=== PATIENT | female | born 1990 | race Caucasian/White ===

== ENCOUNTER 2025-02-12 15:30 | Outpatient (AMB) | payer OTHER, SELFPAY ==
--- OUTSIDE RECORDS SUMMARY | 2025-02-12 08:15 | XMS_ITS | Encounter Summary ---
Author Organization [facility] Address [address] [place] [address] Care Team Providers Care Internet Security Specialist Name Role Phone Sonya Alvarado MD Primary Care Prov ider Reason for Visit * Cardiac Stress Testing (Routine) - Authorized Specialty Diagnoses / Procedures Referred By Radha t Referred To Contact Cardiology Diagnoses SVT (supraventricular tachycardia) (CMS/HCC V24) POTS (postural orthostatic tachycardia syndrome) Dizziness Procedures Exercise stress test Ervin Guerra NP [address] [place] [phone] Phone: tel: fax: [facility] Referral ID Status Reason Start Date Expiration Date V isits Requested Visits Authorized [id number] Authorized 01/23/2025 01/23/2026 1 1 Encounter Details Date Type Department Care Team (Latest Contact Info) Description 02/12/2025 8:15 AM EDT Ancillary Procedure [facility] - [address] [phone] SVT (supraventricular tachycardia) (CMS/HCC V24); POTS (postural orthostatic tachycardia syndrome); Dizziness Social History Tobacco Use Types Packs/Day Years Used Date Smoking Tobacco: Every Day Cigarettes 0.5 20 Started: 01/28/2005 Smokeless Tobacco: Never Alcohol Use Standard Drinks/Week Comments Not Currently 0 (1 standard drink = 0.6 oz pur e alcohol) occas/rarely Housing Instability Answer Date Recorde d Are you worried that in the next 2 months you may not have stable housing? No 07/19/2024 Food Access & Nutrition Answer Date Rec orded Do you have access to a vari ety of food including fruits and vegetables? Yes 07/19/2024 Access to Healthcare Answer Date Record ed Within the last 3 months, ho w many times did you visit the emergency department for your medical care? 0 07/19/2024 Health Literacy Answer Date Recorded How often do you need to hav e someone help you when you read instructions, pamphlets, or other written material from your doctor or pharmacy? Never 07/19/2024 Caregiver: How often do you need to have someone help you when you read instructions, pamphlets, or other written material from your doctor or pharmacy? Not on file 07/19/2024 Financial Risk Answer Date Recorded How hard is it for you to pa y for the very basics like food, housing, medical care, and air conditioning / heating? Not very hard 07/19/2024 Transportation Answer Date Recorded Has the lack of transportati on kept you from meetings, work, or from getting things needed for daily living? No Has the lack of transportati on kept you from medical appointments or from getting medications? No 07/19/2024 Social Isolation Answer Date Recorded How often do you feel lonely or isolated from th ose around you? Never 07/19/2024 Food Risk Answer Date Recorded Within the past 12 months we worried whether our food would run out before we got money to buy more. Never true 07/19/2024 Within the past 12 months th e food we bought just didn't last and we didn't have money to get more. Never true 07/19/2024 Dependent Care Answer Date Recorded Do you need help finding or paying for care for your loved ones. For example, children's author or elderly care for an older adult? No 07/19/2024 Education Answer Date Recorded Do you think completing more education or training, like finishing a GED, going to college, or learning a trade, would be helpful for you? No 07/19/2024 Employment and Income Answer Date Recor ded During the last four weeks, have you been actively looking for work? No 07/19/2024 Living Situation Answer Date Recorded What is your living situation? Unrecognized valu e 07/19/2024 Comments No Sex and Gender Information Value Date Recorded Sex Assigned at Not on file Legal Sex Female 6:34 AM EST Gender Identity Not on file Sexual Orientation Not on file documented as of this encounter Last Filed Vital Signs Vital Sign Reading Time Taken Comments Blood Pressure 110/82 02/12/2025 8:05 AM EDT Pulse - - Temperature - - Respiratory Rate - - Oxygen Saturation - - Inhaled Oxygen Concentration - - Weight 56.2 kg (124 lb) 02/12/2025 8:05 AM EDT Height - - Body Mass Index 21.28 02/05/2025 8:05 AM EDT documented in this encounter Functional Status * Are you deaf or do you have serious difficulty hearing? Answer Date of Assessment Author No 09/23/2024 6:34 AM Tisha Shirley RN * Are you blind or do you have serious difficulty seeing, even when wearing glasses? Answer Date of Assessment Author No 09/23/2024 6:34 AM Tisha Shirley RN * Do you have serious difficulty walking or climbing stairs? Answer Date of Assessment Author No 09/23/2024 6:34 AM Tisha Shirley RN * Do you have serious difficulty dressing or bathing? Answer Date of Assessment Author No 09/23/2024 6:34 AM Tisha Shirley RN * Because of a physical, mental, or emotional condition, do you have serious difficulty doing errandsalone such as visiting the doctor? Answer Date of Assessment Author No 09/23/2024 6:34 AM Tisha Shirley RN documented as of this encounter Mental Status * Because of a physical, mental, or emotional condition, do you have serious difficulty concentrating, remembering, or making decisions? (5 years old or older) Answer Entry Date Author No 09/23/2024 6:34 AM Tisha Shirley RN documented in this encounter Plan of Treatment Upcoming Encounters Date Type Department Care Team (Late st Contact Info) Description 04/15/2025 1:45 PM EST Appointment [facility] [address] [place] [address] 04/16/2025 9:50 AM EST Office Visit Gastroenterology - [place] [address] [facility] [address] [facility] [address] [place] [phone] Carline Dickerson PA [address] [place] [address] 05/28/2025 10:10 AM EST Office Visit [facility] - [facility] [address] [facility] [address] [place] [phone] Ervin Guerra NP [address] [place] [address] [address] [place] [address] 07/09/2025 10:30 AM EST Office Visit Adult [address] [phone] Kymberly Morgan PA [address] [place] [address] 01/06/2026 2:00 PM EDT Office Visit [address] [phone] Sonya Alvarado MD [address] [place] [address] Pending Results Name Type Priority Associated Diagnoses Date /Time Exercise stress test Cardiac Nuclear Medicine Routine SVT (supraventricular tachycardia) (CMS/HCC V24) POTS (postural orthostatic tachycardia syndrome) Dizziness 02/12/2025 8:28 AM EDT documented as of this encounter Procedures Procedure Name Priority Date/Time Associated Diagnosis Comments STRESS TEST ONLY EXERCISE Routine 02/12/2025 8:28 AM EDT SVT (supraventricular tachycardia) (CMS/HCC V24) POTS (postural orthostatic tachycardia syndrome) Dizziness Procedure Note - Joaquina Jewell NP / Cameron Appiah MD - 02/12/2025 8:28 AM EDTThis note is in progress. Stress ECG was normal. Exercise stress test was performed. Patient reported no symptoms duringthe stress test. Exercise capacity was average. Normal blood pressureresponse. Stress: The test was stopped because the patient experienced fatigue.Blood pressure demonstrated a normal response. Heart rate demonstrated anormal response. The patient reported no symptoms during the stresstest. Findings Stress Findings A Real protocol stress test was performed. Overall, the patient's exercise capacity was average. Total stress time was 9 min and 29 sec. The patient experienced no angina during the test. The test was stopped because the patient experienced fatigue. The Segura Treadmill Score is 9. The patient's hemodynamic response was adequate for diagnosis. Blood pressure demonstrated a normal response. Heart rate demonstrated a normal response. The patient reported no symptoms during the stress test. ECG 34 yo female with a history of SVT, POTS and former tobacco use referred for POTS. The ECG shows normal sinus rhythm. Baseline ECG indicates incomplete right bundle branch block. There were no arrhythmias during stress. There is no ST segment changes during stress. There were no arrhythmias during recovery. The result of the stress ECG was negative for ischemia. documented in this encounter Visit Diagnoses Diagnosis SVT (supraventricular tachycardia) (CMS/HCC V24) Other specified cardiac dysrhythmias POTS (postural orthostatic tachycardia syndrome) Unspecified tachycardia Dizziness Dizziness and giddiness documented in this encounter Additional Health Concerns Assessment Noted Time PHQ-9 Depression Total Score: 0 07/20/19 25 8:54 AM EST documented as of this encounter Care Teams Internet Security Specialist Relationship Specialty Start Date End Date Sonya Alvarado MD [address] [place] [phone] PCP - General Internal Medicine 03/06/24 documented as of this encounter
--- NOTE | 2025-02-12 15:43 | A.OFFVIS_ITS ---
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 Now she was here saying that her [employer] [facility] here because of POTS syndrome. Her main concern was dizziness that was described as lightheadedness but sometime spinning sensation occurring frequently many times making her unsteady and dizzy. She could not figure out any particular trigger but stated that it was frequently present. She also talked about an odd feeling in left occipital area like water was running. She did not have severe headaches recently but she was having some headache every day. She also talked about tingling and numbness in her legs. One time she had left hemibody numbness and went to emergency room and had scanning done for stroke that was negative. In September of 2019 five she had an MRI done and [facility] that did not reveal any significant pathology. She denied any bowel bladder difficulties. [facility] Medical History (Updated 02/12/25 @ 16:08 by Juliana Rodriguez MD) SVT (supraventricular tachycardia) PTSD (post-traumatic stress disorder) POTS (postural orthostatic tachycardia syndrome) Dysmenorrhea Depression Allergic rhinitis Paresthesias Review of Systems Const Details: - Neurological: Reports dizziness, fainting history, lightheadedness, head pressure, numbness, and tingling in legs. - Musculoskeletal: Reports weakness, numbness, tingling, and cramp-like pain in legs. - HEENT: Reports pressure sensation in the head, non-spinning vertigo. - Cardiovascular: Reports diagnosed Postural Orthostatic Tachycardia Syndrome. - Psychiatric: Reports variability in mood and history of anxiety. Physical Exam Neuro Other: Mental Status: Alert and oriented to person, place, and time. Normal attention. Normal spontaneous speech, fluency, and comprehension. No obvious issues with mood and memory. Affect is appropriate. Cranial Nerves: CN II: Visual patton full to confrontation, visual acuity intact. CN III, IV, : Pupils equal, round, reactive to light and accommodation. Extraocular movements are normal. CN V: Facial sensation is normal. CN VII: Facial movements symmetrical. CN VIII: Hearing intact to bedside conversation is normal. CN IX, X: Palate elevates symmetrically. CN XI: Shoulder shrug and head turn symmetrical. CN XII: Tongue midline without atrophy or fasciculations. Motor: Deep tendon reflexes were absent with flexor plantars. Joint position and vibratory sensations were diminished or absent in toes. Extrapyramidal: Full facial expressions and blinking. No rigidity. Movements are appropriate with no tremor or abnormality. Speech: Normal; no dysarthria or tremor. Results Reviewed Results Reviewed: Her antinuclear antibody screen at [facility] was negative. Rheumatoid factor was less than 10. Basic metabolic profile was normal. Glucose was 91. B12 was 341. Folate was 5.2. Vitamin-D was 21.8. Antibody Babesiosis antibody titer was negative. Lyme test was negative. Hemoglobin A1c was 5.9. Ferritin was 18. Magnesium was 2.2. Tissue transfer gluteus in his was normal. Assessment & Plan Assessment & Plan (1) Migraine: Comment: MRI brain [facility] at [facility] in September 2024: WNL Code(s): G43.909 - Migraine, unspecified, not intractable, without status migrainosus Category: Medical Qualifiers: Migraine type: migraine (< 15 days per month) without aura Status migrainosus presence: without status migrainosus Intractability: not intractab le Qualified Code(s): G43.009 - Migraine without aura, not intractable, without status migrainosus (2) Peripheral neuropathy: Code(s): G62.9 - Polyneuropathy, unspecified Category: Medical Qualifiers: Peripheral neuropathy type: polyneuropathy, unspecified Qualified Code(s): G62.9 - Polyneuropathy, unspecified (3) Migraine equivalent syndrome: Code(s): G43.109 - Migraine with aura, not intractable, without status migrainosus Category: Medical Plan Impression: 1. Probably chronic migraine including brainstem migraine and associated symptomatology explaining stroke-like symptoms, paresthesias, and dizziness 2. Recent worsening of legs symptoms with tingling and numbness and exam revealing lack of reflexes suggestive of peripheral neuropathy. Recommendations: 1. EMG nerve conduction study of lower extremities 2. Reassurance and education about her conditions 3. Topiramate 25 mg 1 at night Orders: Orders NE nerve conduction velocity Today G62.9 - Polyneuropathy, unspecified NE electromyogram (EMG) Today G62.9 - Polyneuropathy, unspecified Medications: New topiramate 25 mg orally one at night; 90 tabs 1RF Coding Level of Care Code New Pt Level 5 (53306) Diagnoses Migraine without aura and without status migrainosus, not intractable G43.009 Migraine type: migraine (< 15 days per month) without aura Status migrainosus presence: without status migrainosus Intractability: not intractable Peripheral polyneuropathy G62.9 Peripheral neuropathy type: polyneuropathy, unspecified Migraine equivalent syndrome G43.109
[2025-02-12 16:03] VITALS: BP 109/71; PULSE 70
--- OUTSIDE RECORDS SUMMARY | 2025-02-12 16:21 | XMS_ITS | Clinical Summary ---
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 leaflets are not thickened and exhibit normal excursion. There is no regurgitation or stenosis. Pulmonic Valve The pulmonic valve was not well visualized. No significant pulmonic valve regurgitation. No significant pulmonary valve stenosis noted. Ascending Aorta The aorta appears normal in size. Pericardium Pericardium appears normal. There is no pericardial effusion. Study Details Overall the study quality was adequate. The underlying ECG rhythm was bundle branch block. us Ervin Guerra NP CV ECHO PROCEDURES Final Re sult * CARDIAC HOLTER MONITOR (REPORT GENERATED IN HOUSE) (01/23/2025 3:41 PM EDT) Anatomical Region Laterality Modality Cardiac Diagnost ic Narrative 02/03/2025 6:46 AM EDT [facility] DIAGNOSTIC TESTING DEPARTMENT [address] [place] [address], [place] [address] TEL: FAX: Type of Test: 24 Hour Holter Monitor Date of Test: 01/23/2025 Ordering Provider: Ervin Guerra NP Reason for Test: POTS (postural orthostatic tachycardia syndrome) Impression: (Total recorded time: 20 hours 11 minutes) 1: Normal Sinus Rhythm with episodes of Second Degree AVB Type I. 2: One PAC. Two PVCs. 3: No significant pause noted, longest R-R was 1.9 seconds at 12:22 AM. 4: Diary returned with no symptoms noted. Ervin Guerra NP CV CARDIAC SERVICES PROCEDU RES Final Result * ECG-Annotated (01/20/2025) Provider Onbase ECG ORDERABLES Final Result * Tissue transglutaminase, IgG (01/18/2025 2:16 PM EDT) t-Transglutamin ase (tTG) IgG <2 0 - 5 U/mL 01/21/2025 1:05 PM EDT [facility] Comment: Negative 0 - 5 Weak Positive 6 - 9 Positive >9 Blood Venous blood specimen / Unknown Venipuncture / Unknown 01/18/2025 2:16 PM EDT 01/18/2025 3:11 PM EDT Narrative [facility] - 01/21/2025 1:05 PM EDT Performed at: [facility] [id number] Archivist Economic History: Chandni Tiwari MD, Phone: [phone] Raj Holguin MD LAB BLOOD ORDERABLES Final Result [facility] * XR Chest 2 Views (01/18/2025 11:40 AM EDT) Anatomical Region Laterality Modality Body Radiographic Christina ging 01/18/2025 11:4 8 AM EDT Impressions 01/18/2025 11:56 AM EDT Normal chest radiographs. -------- FINAL REPORT -------- Dictated By: Yordan Crenshaw Dictated Date: 01/18/2025 11:48 ET Assigned Physician: Yordan Crenshaw Reviewed and Electronically Signed By: Yordan Crenshaw Signed Date: 01/18/2025 11:56 ET Workstation ID: [id number] Transcribed By: Self Edit Transcribed Date: 01/18/2025 11:48 ET Narrative 01/18/2025 11:56 AM EDT PROCEDURE: PA and lateral radiographs of the chest. HISTORY: chest pain. COMPARISON: 09/04/2015. FINDINGS: The heart, mediastinum, lungs, pleural spaces, and bony thorax are normal. Procedure Note Yordan Crenshaw MD - 01/18/2025 PROCEDURE: PA and lateral radiographs of the chest. HISTORY: chest pain. COMPARISON: 09/04/2015. FINDINGS: The heart, mediastinum, lungs, pleural spaces, and bony thorax arenormal. IMPRESSION: Normal chest radiographs. -------- FINAL REPORT -------- Dictated By: Yordan Crenshaw Dictated Date: 01/18/2025 11:48 ET Assigned Physician: Yordan Crenshaw Reviewed and Electronically Signed By: Yordan Crenshaw Signed Date: 01/18/2025 11:56 ET Workstation ID: [id number] Transcribed By: Self Edit Transcribed Date: 01/18/2025 11:48 ET Raj Holguin MD IMG XR PROCEDURES Final Res ult * POC , urine manually resulted (01/18/2025 11:24 AM EDT) HCG, Ur POC Negative Negative POC hCG Int QC Pass? Yes Yes Urine Urine specimen obtained by clean catch procedure / Unknown 01/18/2025 11:24 AM EDT Raj Holguin MD POINT OF CARE TEST ENTER/ED IT ORDERABLES Final Result * Troponin I high sensitivity (01/18/2025 10:38 AM EDT) Only the most recent of2 resultswithin the time period is included. High Sensitivity Troponin I 3 <=54 ng/L LAB CHEMISTRY METHOD 01/18/2025 11:28 AM EDT [facility] Blood Venous blood specimen / Unknown Venipuncture / Unknown 01/18/2025 10:38 AM EDT 01/18/2025 10:54 AM EDT Narrative [facility] - 01/18/2025 11:28 AM EDT High levels of biotin in samples may falsely decrease hsTroponin values. Use caution when interpreting hsTroponin results in patients taking biotin who exhibit renal impairment (eGFR <60) or in patients taking more than 20 mg/day of biotin. Raj Holguin MD LAB BLOOD ORDERABLES Final Result Performing Organization Address [facility]/ZIP Co de Phone Number [facility] [address] [place] [address], [place] [phone] * Endomysial antibody, IgA (01/18/2025 10:10 AM EDT) Endomysial IgA Negative Negative 01/22/2025 11:29 AM EDT [facility] Blood Venous blood specimen / Unknown Venipuncture / Unknown 01/18/2025 10:10 AM EDT 01/18/2025 10:22 AM EDT Raj Holguin MD LAB BLOOD ORDERABLES Final Result Performing Organization Address [facility]/ZIP Co de Phone Number [facility] [address] [place] [address], [place] [phone] * ALEXIS IFA with titer and pattern (01/18/2025 10:10 AM EDT) ALEXIS Negative Negative 01/21/2025 1:40 PM EDT [facility] Comment:ALEXIS performed by ind irect immunofluorescence (IFA) using HEp-2 substrate. Blood Venous blood specimen / Unknown Venipuncture / Unknown 01/18/2025 10:10 AM EDT 01/18/2025 10:22 AM EDT Raj Holguin MD LAB BLOOD ORDERABLES Final Result Performing Organization Address City/[facility]/ZIP Co de Phone Number [facility] [address] [place] [address], [place] [phone] * CBC auto differential (01/18/2025 10:10 AM EDT) Only the most recent of2 resultswithin the time period is included. [facility] Signature WBC 7.9 4.8 - 10.8 K/mcL LAB HEMETOLOGY METHOD 01/18/2025 10:28 AM [facility] RBC 4.70 3.80 - 4.80 M/mcL LAB HEMETOLOGY METHOD 01/18/2025 10:28 AM [facility] Hemoglobin 14.0 11.5 - 16.0 g/dL LAB HEMETOLOGY METHOD 01/18/2025 10:28 AM [facility] Hematocrit 42.2 35.0 - 47.0 % LAB HEMETOLOGY METHOD 01/18/2025 10:28 AM [facility] MCV 90.6 79.0 - 98.0 FL LAB HEMETOLOGY METHOD 01/18/2025 10:28 AM [facility] MCH 30.0 27.0 - 32.0 pcg LAB HEMETOLOGY METHOD 01/18/2025 10:28 AM [facility] MCHC 33.2 32.0 - 37.0 g/dL LAB HEMETOLOGY METHOD 01/18/2025 10:28 AM [facility] RDW 13.0 11.0 - 15.0 % LAB HEMETOLOGY METHOD 01/18/2025 10:28 AM [facility] Platelets 352 130 - 400 K/mcL LAB HEMETOLOGY METHOD 01/18/2025 10:28 AM [facility] MPV 9.7 7.0 - 11.0 FL LAB HEMETOLOGY METHOD 01/18/2025 10:28 AM [facility] NRBC 0.0 <1.0 % LAB HEMETOLOGY METHOD 01/18/2025 10:28 AM [facility] NRBC Absolute 0.00 <0.10 K/mcL LAB HEMETOLOGY METHOD 01/18/2025 10:28 AM [facility] Neutrophils Relative 48.6 % LAB HEMETOLOGY METHOD 01/18/2025 10:28 AM [facility] Lymphocytes Relative 40.8 % LAB HEMETOLOGY METHOD 01/18/2025 10:28 AM [facility] Monocytes Relative 7.8 % LAB HEMETOLOGY METHOD 01/18/2025 10:28 AM [facility] Eosinophils Relative 1.8 % LAB HEMETOLOGY METHOD 01/18/2025 10:28 AM [facility] Basophils Relative 0.6 % LAB HEMETOLOGY METHOD 01/18/2025 10:28 AM [facility] Immature Granulocytes Relative 0.4 % LAB HEMETOLOGY METHOD 01/18/2025 10:28 AM [facility] Neutrophils Absolute 3.82 1.50 - 7.00 K/mcL LAB HEMETOLOGY METHOD 01/18/2025 10:28 AM [facility] Lymphocytes Absolute 3.21 1.00 - 5.00 K/mcL LAB HEMETOLOGY METHOD 01/18/2025 10:28 AM [facility] Monocytes Absolute 0.61 0.20 - 1.00 K/mcL LAB HEMETOLOGY METHOD 01/18/2025 10:28 AM [facility] Eosinophils Absolute 0.14 0.00 - 0.50 K/mcL LAB HEMETOLOGY METHOD 01/18/2025 10:28 AM [facility] Basophils Absolute 0.05 0.00 - 0.20 K/mcL LAB HEMETOLOGY METHOD 01/18/2025 10:28 AM [facility] Immature Granulocytes Absolute 0.03 0.00 - 0.03 K/mcL LAB HEMETOLOGY METHOD 01/18/2025 10:28 AM EDT [facility] Blood Venous blood specimen / Unknown Venipuncture / Unknown 01/18/2025 10:10 AM EDT 01/18/2025 10:22 AM EDT Raj Holguin MD LAB BLOOD ORDERABLES Final Result Performing Organization Address City/[facility]/ZIP Co de Phone Number [facility] [address] [place] [address], [place] [phone] * (ABNORMAL) Gliadin antibodies, serum (01/18/2025 10:10 AM EDT) Gliadin IgA 28(H) <20 units LAB CHEMISTRY METHOD 01/22/2025 11:54 AM EDT [facility] Gliadin IgG 1 <20 units LAB CHEMISTRY METHOD 01/22/2025 11:54 AM EDT [facility] Gliadin IgA Antibody Positive(A) Negative LAB CHEMISTRY METHOD 01/22/2025 11:54 AM EDT [facility] Gliadin IgG Antibody Negative Negative LAB CHEMISTRY METHOD 01/22/2025 11:54 AM EDT [facility] Blood Venous blood specimen / Unknown Venipuncture / Unknown 01/18/2025 10:10 AM EDT 01/18/2025 10:22 AM EDT Raj Holguin MD LAB BLOOD ORDERABLES Final Result [facility] [address] [place] [address], [place] [phone] * Tissue transglutaminase, IgA (01/18/2025 10:10 AM EDT) Tissue Transglutaminase Ab, IgA Quant 0 <4 unit/mL LAB CHEMISTRY METHOD 01/22/2025 11:54 AM EDT [facility] Tissue Transglutaminase Ab, IgA Negative Negative LAB CHEMISTRY METHOD 01/22/2025 11:54 AM EDT [facility] Blood Venous blood specimen / Unknown Venipuncture / Unknown 01/18/2025 10:10 AM EDT 01/18/2025 10:22 AM EDT Raj Holguin MD LAB BLOOD ORDERABLES Final Result Performing Organization Address City/[facility]/ZIP Co de Phone Number [facility] [address] [place] [address], [place] [phone] * Rheumatoid factor (01/18/2025 10:10 AM EDT) Pathologist [facility] Rheumatoid Factor <10.0 <15.0 I Unit/mL LAB CHEMISTRY METHOD 01/18/2025 2:07 PM EDT [facility] Blood Venous blood specimen / Unknown Venipuncture / Unknown 01/18/2025 10:10 AM EDT 01/18/2025 10:22 AM EDT Raj Holguin MD LAB BLOOD ORDERABLES Final Result Performing Organization Address [facility]/ZIP Co de Phone Number [facility] [address] [place] [address], [place] [phone] * C-reactive protein (01/18/2025 10:10 AM EDT) Pathologist [facility] C-Reactive Protein <0.29 <=0.50 mg/dL LAB CHEMISTRY METHOD 01/18/2025 2:07 PM EDT [facility] Blood Venous blood specimen / Unknown Venipuncture / Unknown 01/18/2025 10:10 AM EDT 01/18/2025 10:22 AM EDT Raj Holguin MD LAB BLOOD ORDERABLES Final Result [facility] [address] [place] [address], [place] [phone] * Magnesium (01/18/2025 10:10 AM EDT) [facility] Magnesium 2.2 1.9 - 2.6 mg/dL LAB CHEMISTRY METHOD 01/18/2025 11:07 AM T [facility] Blood Venous blood specimen / Unknown Venipuncture / Unknown 01/18/2025 10:10 AM EDT 01/18/2025 10:22 AM EDT us Raj Holguin MD LAB BLOOD ORDERABLES Final Result [facility] [address] [place] [address], [place] [phone] * (ABNORMAL) Basic metabolic panel (01/18/2025 10:10 AM EDT) [facility] Sodium 137 133 - 145 mmol/L LAB CHEMISTRY METHOD 01/18/2025 11:16 AM [facility] Potassium 4.4 3.5 - 5.5 mmol/L LAB CHEMISTRY METHOD 01/18/2025 11:16 AM [facility] Chloride 108 96 - 110 mmol/L LAB CHEMISTRY METHOD 01/18/2025 11:16 AM [facility] CO2 27 21 - 32 mmol/L LAB CHEMISTRY METHOD 01/18/2025 11:16 AM [facility] Anion Gap 2(L) 3 - 11 LAB CHEMISTRY METHOD 01/18/2025 11:16 AM [facility] Glucose 91 70 - 100 mg/dL LAB CHEMISTRY METHOD 01/18/2025 11:16 AM [facility] BUN 13 5 - 25 mg/dL LAB CHEMISTRY METHOD 01/18/2025 11:16 AM [facility] Creatinine 0.88 0.50 - 1.10 mg/dL LAB CHEMISTRY METHOD 01/18/2025 11:16 AM EDT [facility] eGFR 87 >=60 mL/min/1. 73m2 LAB CHEMISTRY METHOD 01/18/2025 11:16 AM EDT [facility] Comment:Calculation based on the Chronic Kidney Disease Epidemiology Collaboration (CKD-EPI) equation refit without adjustment for race. BUN/Creatinine Ratio 14.8 LAB CHEMISTRY METHOD 01/18/2025 11:16 AM EDT [facility] Calcium 9.2 8.5 - 10.5 mg/dL LAB CHEMISTRY METHOD 01/18/2025 11:16 AM EDT [facility] Blood Venous blood specimen / Unknown Venipuncture / Unknown 01/18/2025 10:10 AM EDT 01/18/2025 10:22 AM EDT Raj Holguin MD LAB BLOOD ORDERABLES Final Result [facility] [address] [place] [address], [place] [phone] * ECG 12 lead (01/18/2025 10:06 AM EDT) Only the most recent of2 resultswithin the time period is included. Ventricular Rate ECG 81 BPM GEMUSE Atrial Rate 81 BPM GEMUSE P-R Interval 146 ms GEMUSE QRS Duration 98 ms GEMUSE Q-T Interval 354 ms GEMUSE QTc 411 ms GEMUSE P Wave [place] 64 degrees GEMUSE R [place] -20 degrees GEMUSE T [place] 59 degrees GEMUSE ECG Interpretation Normal sinus rhythm Incomplete right bundle branch block Minimal voltage criteria for LVH, may be normal variant ( Donell product ) Borderline ECG When compared with ECG of 07-JAN-2025 15:22, Minimal criteria for Inferior infarct are no longer Present QT has shortened Confirmed by PRITESH GRACE ([id number]) on 01/19/2025 7:14:55 AM GEMUSE 01/18/2025 10:0 6 AM EDT 01/19/2025 7:14 AM EDT us Raj Holguin MD ECG ORDERABLES Final Resul t Performing Organization Address City/[facility]/ZIP Co de Phone Number [facility] * Microalbumin creatinine urine ratio (12/04/2024 11:00 AM EDT) Creatinine, Urine 189.0 mg/dL LAB CHEMISTRY METHOD 12/04/2024 7:24 PM EDT [facility] Microalb, Ur 10.5 0.0 - 29.0 mg/L LAB CHEMISTRY METHOD 12/04/2024 7:24 PM EDT [facility] Microalb/Creat Ratio 6 <30 mg/g creat LAB CHEMISTRY METHOD 12/04/2024 7:24 PM EDT [facility] Urine Urine specimen obtained by clean catch procedure / Unknown Non-blood Collection / Unknown 12/04/2024 11:00 AM EDT 12/04/2024 11:00 AM EDT [facility] URINE ORDERABLES Final Resu lt Performing Organization Address [facility] Co de Phone Number [facility] [address] [place] [address], [place] [phone] * Culture urine (12/04/2024 10:57 AM EDT) Culture, Urine <10,000 CFU/mL gram positive cocci, insignificant count, no further workup 12/05/2024 1:18 PM EDT [facility] Urine Urine specimen obtained by clean catch procedure / Unknown Non-blood Collection / Unknown 12/04/2024 10:57 AM EDT 12/04/2024 10:57 AM EDT [facility] MICROBIOLOGY - GENERAL ORDE RABLES Final Result Performing Organization Address City/[facility]/ZIP Co de Phone Number [facility] [address] [place] [address], [place] [phone] * Thyroid stimulating hormone with reflex to free t4 and free t3 (12/04/2024 10:19 AM EDT) [facility] TSH 1.11 0.40 - 4.00 mcIU/mL LAB CHEMISTRY METHOD 12/04/2024 2:20 PM EDT [facility] Blood Venous blood specimen / Unknown Venipuncture / Unknown 12/04/2024 10:19 AM EDT 12/04/2024 10:19 AM EDT [facility] BLOOD ORDERABLES Final Resu lt [facility] [address] [place] [address], [place] [phone] * Lipid panel with reflex to direct LDL (12/04/2024 10:19 AM EDT) [facility] Cholesterol 125 0 - 200 mg/dL LAB CHEMISTRY METHOD 12/04/2024 1:26 PM EDT [facility] Triglycerides 50 0 - 150 mg/dL LAB CHEMISTRY METHOD 12/04/2024 1:26 PM T [facility] HDL 56 >=40 mg/dL LAB CHEMISTRY METHOD 12/04/2024 1:26 PM [facility] LDL Calculated 59 0 - 100 mg/dL LAB CHEMISTRY METHOD 12/04/2024 1:26 PM EDT [facility] VLDL Cholesterol Jose 10 mg/dL LAB CHEMISTRY METHOD 12/04/2024 1:26 PM EDT [facility] Non HDL Chol. (LDL+VLDL) 69 <145 mg/dL LAB CHEMISTRY METHOD 12/04/2024 1:26 PM [facility] Chol/HDL Ratio 2.2 0.0 - 4.4 LAB CHEMISTRY METHOD 12/04/2024 1:26 PM T [facility] Blood Venous blood specimen / Unknown Venipuncture / Unknown 12/04/2024 10:19 AM EDT 12/04/2024 10:19 AM EDT [facility] BLOOD ORDERABLES Final Resu lt [facility] [address] [place] [address], * Babesia microti antibodies, IGG and IGM (12/04/2024 10:19 AM EDT) Babesia microti IgG Antibodies <1:64 12/10/2024 10:37 PM EDT [facility] Babesia microti IgM Antibodies <1:20 12/10/2024 10:37 PM EDT [facility] Babesia microti Interpretation SEE NOTE 12/10/2024 10:37 PM EDT [facility] Comment: ANTIBODY NOT DETECTED REFERENCE RANGES: IgG <1:64 IgM <1:20 Elevated antibody levels to B. microti indicate exposure to the organism. Human babesiosis infection is transmitted by the bite of an infected Ixodes tick or less frequently from transfusion with blood from an infected donor. Definitive diagnosis is made by identifying intraerythrocytic organisms in peripheral blood. In patients with low parasitemia, antibody detection by IFA is recommended. IgG levels greater than or equal to 1:1024 can be detected in acute phase patients with parasites in blood smears. The IFA assay can be used as a seroepidemiologic tool to study the frequency and distribution of B. microti in endemic areas especially in persons with mixed infections also involving Borrelia burgdorferi. This test was developed and its analytical performance characteristics have been determined by [facility]. It has not been cleared or approved by FDA. This assay has been validated pursuant to the CLIA regulations and is used for clinical purposes. Test Performed at: [facility] [id number] [place] [id number] Robert Su MD, PhD Blood Venous blood specimen / Unknown Venipuncture / Unknown 12/04/2024 10:19 AM EDT 12/04/2024 10:19 AM EDT us [facility] BLOOD ORDERABLES Final Resu [place] [address] * Anaplasma phagocytophilum antibodies, IGG and IGM (12/04/2024 10:19 AM EDT) Anaplasma phagocytophilum IgG Ab <1:64 <1:64 12/11/2024 6:37 PM EDT [facility] Anaplasma phagocytophilum IgM Ab <1:20 <1:20 12/11/2024 6:37 PM EDT [facility] Anaplasma phagocytophilum Interpretation SEE BELOW 12/11/2024 6:37 PM EDT [facility] Comment:Antibody Not Detecte d Comment SEE BELOW 12/11/2024 6:37 PM EDT [facility] Comment: Anaplasma phagocytophilum is the tick-borne agent causing Human Granulocytic Ehrlichiosis (HGE). HGE is distinct and separate from Human Monocytic Ehrlichiosis (HME), caused by Ehrlichia chaffeensis. Serologic crossreactivity between A. phagocyto- philum and E. chaffeensis is minimal (5-15%). This test was developed and its analytical performance characteristics have been determined by [facility] [place]. It has not been cleared or approved by the U.S. Food and Drug Administration. This assay has been validated pursuant to the CLIA regulations and is used for clinical purposes. Test Performed by [facility], [facility], [address] [place] [address] Noe Cancino M.D., Ph.D., Director of Laboratories , CLIA [id number] Blood Venous blood specimen / Unknown Venipuncture / Unknown 12/04/2024 10:19 AM EDT 12/04/2024 10:19 AM EDT [facility] BLOOD ORDERABLES Final Resu lt Performing Organization Address [facility]/ZIP Co de Phone Number [facility] [address] [place] [address] * Iron and TIBC (12/04/2024 10:19 AM EDT) Iron 95 40 - 150 mcg/dL LAB CHEMISTRY METHOD 12/04/2024 1:26 PM EDT [facility] TIBC 387 250 - 450 mcg/dL LAB CHEMISTRY METHOD 12/04/2024 1:26 PM EDT [facility] Iron Saturation 25 15 - 50 % LAB CHEMISTRY METHOD 12/04/2024 1:26 PM EDT [facility] Blood Venous blood specimen / Unknown Venipuncture / Unknown 12/04/2024 10:19 AM EDT 12/04/2024 10:19 AM EDT [facility] BLOOD ORDERABLES Final Resu lt Performing Organization Address [facility]/ZIP Co de Phone Number [facility] [address] [place] [address], * Ehrlichia chaffeensis antibodies, IgG and IgM (12/04/2024 10:19 AM EDT) Pathologist [facility] Ehrlichia chaffeensis Ab IgG <1:64 <1:64 12/11/2024 6:37 PM EDT [facility] Ehrlichia chaffeensis Ab IgM <1:20 <1:20 12/11/2024 6:37 PM EDT [facility] Interpretation SEE BELOW 12/11/2024 6:37 PM EDT [facility] Comment:Antibody Not Detecte d Comment SEE BELOW 12/11/2024 6:37 PM EDT [facility] Comment: Ehrlichia chaffeenis has been identified as the causative agent of Human Monocytic Ehrlichiosis (HME). Infected individuals produce specific antibodies to E. chaffeensis that can be detected by an immuno- fluorescent antibody (IFA) test. Single IgG IFA titers of 1:64 or greater indicate exposure to E. chaffeensis. A four-fold rise in IgG titers between acute and convalescent samples and/or the presence of IgM antibody against E. chaffeensis suggest recent or current infection. This test was developed and its analytical performance characteristics have been determined by [facility] [place]. It has not been cleared or approved by the U.S. Food and Drug Administration. This assay has been validated pursuant to the CLIA regulations and is used for clinical purposes. Test Performed by [facility], [facility], [address] [place] [address] Noe Cancino M.D., Ph.D., Director of Laboratories , CLIA [id number] Blood Venous blood specimen / Unknown Venipuncture / Unknown 12/04/2024 10:19 AM EDT 12/04/2024 10:19 AM EDT [facility] BLOOD ORDERABLES Final Resu lt Performing Organization Address City/[facility]/ZIP Co de Phone Number [facility] [address] [place] [address] * Borrelia burgdorferi antibody (12/04/2024 10:19 AM EDT) [facility] Lyme Ab Negative Negative LAB CHEMISTRY METHOD 12/04/2024 2:14 PM EDT [facility] Comment: No laboratory evidence of infection with B. burgdorferi (Lyme disease). Negative results may occur in patients recently infected (<=14 days) with B. burgdorferi. If recent infection is suspected, repeat testing on a new sample collected in 7- 14 days is recommended. Blood Venous blood specimen / Unknown Venipuncture / Unknown 12/04/2024 10:19 AM EDT 12/04/2024 10:19 AM EDT Kymberly BROWNING LAB BLOOD ORDERABLES Final Resu lt [facility] [address] [place] [address], [place] [phone] * (ABNORMAL) Vitamin D 25 hydroxy (12/04/2024 10:19 AM EDT) Pathologist [facility] Vit D, 25-Hydroxy 21.8(L) 30.0 - 80.0 ng/mL LAB CHEMISTRY METHOD 12/04/2024 2:19 PM EDT [facility] Blood Venous blood specimen / Unknown Venipuncture / Unknown 12/04/2024 10:19 AM EDT 12/04/2024 10:19 AM EDT Kymberly BROWNING LAB BLOOD ORDERABLES Final Resu lt [facility] [address] [place] [address], [place] [phone] * Folate (12/04/2024 10:19 AM EDT) [facility] Folate 5.2 2.8 - 17.0 ng/ml LAB CHEMISTRY METHOD 12/04/2024 1:26 PM EDT [facility] Blood Venous blood specimen / Unknown Venipuncture / Unknown 12/04/2024 10:19 AM EDT 12/04/2024 10:19 AM EDT Kymberly BROWNING LAB BLOOD ORDERABLES Final Resu lt [facility] [address] [place] [address], [place] [phone] * Ferritin (12/04/2024 10:19 AM EDT) [facility] Ferritin 18 8 - 252 ng/mL LAB CHEMISTRY METHOD 12/04/2024 1:26 PM EDT [facility] Blood Venous blood specimen / Unknown Venipuncture / Unknown 12/04/2024 10:19 AM EDT 12/04/2024 10:19 AM EDT us Kymberly BROWNING LAB BLOOD ORDERABLES Final Resu lt [facility] [address] [place] [address], [place] [phone] * Vitamin B12 (12/04/2024 10:19 AM EDT) Pathologist [facility] Vitamin B-12 341 250 - 900 pcg/mL LAB CHEMISTRY METHOD 12/04/2024 1:26 PM EDT [facility] Blood Venous blood specimen / Unknown Venipuncture / Unknown 12/04/2024 10:19 AM EDT 12/04/2024 10:19 AM EDT Kymberly BROWNING LAB BLOOD ORDERABLES Final Resu lt Performing Organization Address City/[facility]/ZIP Co de Phone Number [facility] [address] [place] [address], [place] [phone] * Comprehensive metabolic panel (12/04/2024 10:19 AM EDT) [facility] Sodium 137 133 - 145 mmol/L LAB CHEMISTRY METHOD 12/04/2024 1:26 PM [facility] Potassium 4.3 3.5 - 5.5 mmol/L LAB CHEMISTRY METHOD 12/04/2024 1:26 PM [facility] Chloride 109 96 - 110 mmol/L LAB CHEMISTRY METHOD 12/04/2024 1:26 PM [facility] CO2 23 21 - 32 mmol/L LAB CHEMISTRY METHOD 12/04/2024 1:26 PM [facility] Anion Gap 5 3 - 11 LAB CHEMISTRY METHOD 12/04/2024 1:26 PM [facility] Glucose 84 70 - 100 mg/dL LAB CHEMISTRY METHOD 12/04/2024 1:26 PM [facility] BUN 10 5 - 25 mg/dL LAB CHEMISTRY METHOD 12/04/2024 1:26 PM [facility] Creatinine 0.82 0.50 - 1.10 mg/dL LAB CHEMISTRY METHOD 12/04/2024 1:26 PM [facility] eGFR 95 >=60 mL/min/1. 73m2 LAB CHEMISTRY METHOD 12/04/2024 1:26 PM [facility] Comment:Calculation based on the Chronic Kidney Disease Epidemiology Collaboration (CKD-EPI) equation refit without adjustment for race. BUN/Creatinine Ratio 12.2 LAB CHEMISTRY METHOD 12/04/2024 1:26 PM [facility] Calcium 9.0 8.5 - 10.5 mg/dL LAB CHEMISTRY METHOD 12/04/2024 1:26 PM [facility] AST (SGOT) 17 10 - 42 unit/L LAB CHEMISTRY METHOD 12/04/2024 1:26 PM [facility] ALT (SGPT) 27 10 - 60 unit/L LAB CHEMISTRY METHOD 12/04/2024 1:26 PM [facility] Alkaline Phosphatase 65 42 - 121 unit/L LAB CHEMISTRY METHOD 12/04/2024 1:26 PM [facility] Total Protein 6.9 6.0 - 8.0 g/dL LAB CHEMISTRY METHOD 12/04/2024 1:26 PM [facility] Albumin 4.0 3.2 - 5.0 g/dL LAB CHEMISTRY METHOD 12/04/2024 1:26 PM [facility] Total Bilirubin 0.4 0.0 - 1.4 mg/dL LAB CHEMISTRY METHOD 12/04/2024 1:26 PM [facility] Blood Venous blood specimen / Unknown Venipuncture / Unknown 12/04/2024 10:19 AM EDT 12/04/2024 10:19 AM EDT us Kymberly BROWNING LAB BLOOD ORDERABLES Final Resu lt Performing Organization Address City/[facility]/ZIP Co de Phone Number [facility] [address] [place] [address], * Hemoglobin A1c (12/04/2024 10:17 AM EDT) [facility] Hemoglobin A1C 5.9 <6.5 % LAB CHEMISTRY METHOD 12/04/2024 9:51 PM EDT [facility] Mean Bld Glu Estim. 123 mg/dL LAB CHEMISTRY METHOD 12/04/2024 9:51 PM EDT [facility] Blood Venous blood specimen / Unknown Venipuncture / Unknown 12/04/2024 10:17 AM EDT 12/04/2024 10:17 AM EDT Kymberly BROWNING LAB BLOOD ORDERABLES Final Resu lt Performing Organization Address [facility]/ZIP Co de Phone Number [facility] [address] [place] [address], * (ABNORMAL) POC Urine Auto W/O Micro (12/04/2024 9:21 AM EDT) [facility] Leukocytes UA POC Positive(A) Negative Nitrite UA POC Negative Negative Urobilinogen UA POC Negative Negative Protein UA POC Positive(A) Negative PH UA POC 8.5 5.0 - 9.0 Blood UA POC Negative Negative, Trace Specific [place] UA POC 1.005 1.001 - 1.035 Ketones UA POC Negative Negative Bilirubin UA POC Negative Negative Glucose UA POC Normal Normal, Trace Color UA POC Dark Yellow Urine Urine specimen obtained by clean catch procedure / Unknown 12/04/2024 9:21 AM EDT us Kymberly BROWNING POINT OF CARE TEST ENTER/EDIT O RDERABLES Final Result * Pap smear (02/28/2020) 02/28/2020 Narrative HISTORICAL TESTING LAB RESULTING AGENCY - 03/03/2020 3:55 PM EDT [id number] THINPREP PAP, IMAGED: NEGATIVE FOR SQUAMOUS INTRAEPITHELIAL LESION AND MALIGNANCY . GERRI SEPULVEDA(ASCP) (CASE ELECTRONICALLY SIGNED 03 03 2020) RESULT OF APTIMA HIGH RISK HPV ASSAY: HIGH RISK HPV: NEGATIVE (SEROTYPES 16,18,31,33,35,39,45,51,52,56,58,59,66,68) COMPLETED ON 2020-03-02 ADEQUACY: SATISFACTORY ENDOCERVICAL/TRANSFORMATION ZONE COMPONENT PRESENT. SOURCE: THINPREP PAP HPV ANY DX: REFLEX 16 AND 18, CERVICAL, IMAGED CLINICAL INFORMATION: HPV ANY DIAGNOSIS. HORMONES, PAP HX POS NATHAN 1 2011, Z12.4 [place] Lemus Pasquale [facility] CYTOLOGY ORDERA [facility] Final Result HISTORICAL TESTING LAB RESULTING AGENCY from Last 3 Months or Most Recently Relevant to Health Maintenance Insurance [facility] [place] [address] Care Teams Venipuncturist Relationship Specialty Start Date End Date Sonya Alvarado MD [address] [place] [address] PCP - General Internal Medicine 03/06/24
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
== END 2025-02-12 16:17 | disposition home or self-care (01) ==
LOC: HO.HSM 15:31
PROVIDERS: PCP Internal Medicine; Visit Provider Psychiatry & Neurology Neurology
DX: G43.009 Migraine without aura, not intractable, without status migrainosus (principal); G62.9 Polyneuropathy, unspecified; G43.109 Migraine with aura, not intractable, without status migrainosus
CPT/HCPCS: 99204

== ENCOUNTER → 2025-02-12 15:30 | Outpatient (BNVA) | payer OTHER, SELFPAY | PROVIDERS: PCP Internal Medicine; Visit Provider Psychiatry & Neurology Neurology | DX: G43.109 Migraine with aura, not intractable, without status migrainosus (principal); G43.009 Migraine without aura, not intractable, without status migrainosus; G62.9 Polyneuropathy, unspecified | CPT/HCPCS: 99202 ==